=== PATIENT | male | born 1960 | race Caucasian/White ===

== ENCOUNTER 2024-02-18 11:33 | Day surgery (SDC) | payer OTHER, SELFPAY ==
[2024-02-18] VITALS (21 sets, daily range): BP systolic 133–153; BP diastolic 77–95; PULSE 67–90; RESP 14–18; TEMP 36.2–38.1; O2SAT 95–98; BMI 27.9
--- NOTE | 2024-02-18 11:53 | ED.ABDPAIN ---
HPI - Abdominal Pain General Time Seen by Provider: 11:53 Date Seen: 02/18/24 Chief Complaint: Abdominal Pain Stated Complaint: Abdominal pain, vomiting Time Seen by Provider: 02/18/24 11:50 Source: patient and RN notes reviewed Mode of arrival: ambulatory Limitations: no limitations History of Present Illness HPI narrative: This 63-year-old male is coming into the ER of his own accord with abdominal pain. He started with abdominal pain intermittently late last week, worsened over the weekend. It is worsening with eating. He notes no fevers or chills. He has started vomiting once this morning. He does still feel nauseated. He feels bloated. He took 3 Dulcolax tablets with 2 glasses of water today feeling like he needs to have a bowel movement, this was at 7am. His last bowel movement was over 24 hours ago. He is not passing flatus. He has had robotic prostatectomy for reported prostate cancer. He has had an inguinal hernia repair remotely. He had a PFO surgery, states they went through his right groin for that. No urinary changes. MD elicited complaint: abdominal pain Related Data Home Medications Medication Instructions Recorded Confirmed atorvastatin 10 mg tablet 10 mg PO DAILY 02/18/24 02/18/24 losartan 25 mg tablet 25 mg PO DAILY 02/18/24 02/18/24 Allergies Allergy/AdvReac Type Severity Reaction Status Date / Time No Known Drug Allergies Allergy Verified 02/18/24 11:52 Review of Systems Status of ROS Reports: 6 or more systems reviewed and unremarkable except as noted in History and below Exam Const: Vital Signs, click to edit/add: Vital Signs - 24 hr 02/18/24 11:47 02/18/24 12:32 02/18/24 13:29 Temperature 97.2 F L Pulse Rate [Right Pulse Oximeter] 71 70 Respiratory Rate 18 16 Blood Pressure [Ri ght Upper Arm] 145/85 H 142/87 H Pulse Oximetry 97 96 Oxygen Delivery Me thod Room Air Patient is alert, interactive, no apparent distress. Sclera clear, conjugate gaze. Skin is rick no rash noted. Lungs are clear, good air entry, no wheezing or crackles. CV regular rate and rhythm no murmur. Abdomen is soft, maybe mildly distended, do not hear bowel sounds. He is having some mild right lower quadrant tenderness, maybe generalizes. No rebound or guarding at this time. Do not feel any masses. Of note, patient did state that when I had him take deep breaths he was feeling it in the right lower quadrant of his abdomen. Further questioning does elucidate that walking and ambulation have been increasing the pain in his right lower quadrant as well. Documenting provider has reviewed patient's vital signs: yes Course Course ED Course: Patient need CT imaging with IV contrast, this certainly could be an intra-abdominal surgical process such as appendicitis. Diverticulitis of the right side of the colon is a possibility. It is possible that he has bowel obstruction, has had prior abdominal surgery. Will get full complement of labs. Will initiate IV fluids, start IV pain management with Toradol, nausea control with Zofran. Reevaluation(s) Time of Reevaluation #1: 13:43 Reevaluation #1: Reviewed with patient that he has appendicitis. Have left a message with the general surgeon. He states his pain is currently controlled. Consultations Consultation #1: Did speak with our general surgeon Dr. Begum. She is asking at the hospitalist potentially admit this patient. Have ordered an EKG, will order IV antibiotics as he will not likely go to the OR immediately. There are other cases ahead of him, other add on surgical cases. Time: 13:47 Consultation #2: Spoke with hospitalist Dr. Thomas. He accepts care of this patient. Time: 14:05 Vital Signs Vital signs: Initial Vital Signs Temperature 97.2 F L 02/18/24 11:47 Temperature Source Temporal Artery Scan 02/18/24 11:47 Pulse Rate 71 02/18/24 11:47 Respiratory Rate 18 02/18/24 11:47 Blood Pressure 145/85 H 02/18/24 11:47 Blood Pressure Mean 105 02/18/24 11:47 Blood Pressure Position Sitting 02/18/24 11:47 Pulse Oximetry 97 02/18/24 11:47 Oxygen Delivery Method Room Air 02/18/24 11:47 Vital Signs Temperature 97.2 F L 02/18/24 11:47 Pulse Rate 71 02/18/24 11:47 Respiratory Rate 18 02/18/24 11:47 Blood Pressure 145/85 H 02/18/24 11:47 Pulse Oximetry 97 02/18/24 11:47 Oxygen Delivery Method Room Air 02/18/24 11:47 Temperature 97.2 F L 02/18/24 11:47 Pulse Rate 70 02/18/24 13:29 Respiratory Rate 16 02/18/24 13:29 Blood Pressure 142/87 H 02/18/24 13:29 Pulse Oximetry 96 02/18/24 12:32 Oxygen Delivery Method Room Air 02/18/24 11:47 Medications Administered Medications: Discontinued Medications Generic Name Dose Route Start Last Admin Trade Name Freq PRN Reason Stop Dose Admin Sodium Chloride 1,000 mls @ 500 mls/hr 02/18/24 12:02 02/18/24 12:27 0.9 % Sodium Chloride 1000 Ml IV 02/18/24 14:01 500 mls/hr .Q2H VICK Administration Piperacillin Sod/Tazobactam 100 mls @ 200 mls/hr 02/18/24 13:47 02/18/24 14:03 Sod 3.375 gm/ Sodium Chloride IVPB 02/18/24 13:48 200 mls/hr ONCE ONE Administration Ketorolac Tromethamine 15 mg 02/18/24 12:01 02/18/24 12:27 Ketorolac 15 Mg/Ml Inj IVP 02/18/24 12:02 15 mg ONCE ONE Administration Ondansetron HCl 4 mg 02/18/24 12:01 02/18/24 12:28 Ondansetron 2 Mg/Ml Inj IVP 02/18/24 12:02 4 mg ONCE ONE Administration MDM - Abdominal Pain Lab Data Attestation: I reviewed the patient's lab results. Labs: Lab Results 02/18/24 Range/Units 12:15 WBC 17.17 H (4.50-11.00) K/uL RBC 5.32 (4.30-5.90) m/uL Hgb 16.1 (13.5-17.5) gm/dL Hct 48.3 (37.0-53.0) % MCV 91 (80-100) fL MCH 30 (26-34) pg MCHC 33 (32-36) gm/dL RDW Coeff of Cara 12.5 (11.5-15.5) % Plt Count 296 (140-440) K/uL Neut % (Auto) 92.0 H (42.0-72.0) % Lymph % (Auto) 2.3 L (20-44) % [place] % (Auto) 5.3 (0.0-11.0) % Eos % (Auto) 0.1 (0.0-7.0) % Baso % (Auto) 0.1 (0.0-3.0) % Neut # (Auto) 15.80 H (1.7-7.0) K/uL Lymph # (Auto) 0.40 L (0.90-2.90) K/uL [place] # (Auto) 0.90 (0.00-0.90) K/UL Eos # (Auto) 0.00 (0.00-0.50) K/uL Baso # (Auto) 0.00 (0.00-0.30) K/uL Abs Immat Gran (auto) 0.00 (0.00-0.30) K/uL Imm/Tot Granulo (auto) 0.2 % Sodium 136 (135-149) mmol/L Potassium 4.4 (3.6-5.1) mmol/L Chloride 104 (96-114) mmol/L Carbon Dioxide 25 (20-32) mmol/L Anion Gap 7 (7-15) mEq/L BUN 20 (7-30) mg/dL Creatinine 0.8 (0.5-1.5) mg/dL Estimated Creat Clear 79.48 Estimated GFR 99 ml/min Glucose 115 (60-115) mg/dL Lactate 1.3 (0.5-1.9) mmol/L Calcium 9.8 (8.4-10.6) mg/dL Total Bilirubin 0.9 (0.1-1.5) mg/dL AST 29 (12-35) U/L ALT 31 (4-50) U/L Alkaline Phosphatase 87 (40-150) U/L C-Reactive Protein 3.5 H (0.5-1.0) mg/dL Total Protein 8.4 H (6.0-8.3) g/dL Albumin 4.8 (3.3-5.0) g/dL Imaging Data CT scan - abdomen: Attestation: I have reviewed the pertinent imaging results. Radiologist's impression: Patient: VIK PEREYRA Facility:?[facility] Patient ID:?[id number] Site Patient ID:?[id number]. Site :?[id number] Study:?CT Abdomen/Pelvis 98CC ISOVUE 370-02/18/2024 1:04:28 PM Ordering Physician:?DR. NIÑO Final Report: INDICATION: Right-sided abdominal pain associated with nausea and vomiting. COMPARISON: 09/16/2018 TECHNIQUE: CT of the abdomen and pelvis with 98 cc of Isovue 370 intravenous contrast. Please note that all CT scans at this facility use dose modulation, iterative reconstruction, and/or weight-based dosing when appropriate to reduce radiation dose to as low as reasonably achievable. FINDINGS: ABDOMEN Liver: Normal hepatic attenuation. No suspicious focal hepatic lesion. No intrahepatic biliary ductal dilatation. Patent portal and hepatic veins. Gallbladder: Normal gallbladder size. Normal common duct caliber. No pericholecystic inflammatory changes. Pancreas: Normal pancreatic attenuation. No focal lesion. Normal duct caliber. No peripancreatic inflammatory changes. Spleen: Normal splenic attenuation. No suspicious focal lesion. Patent splenic artery and vein. Incidental benign calcified splenic granulomas. Adrenal Glands: Symmetrical adrenal glands. No focal lesion of significance. Kidneys: Normal bilateral renal attenuation. No suspicious focal lesion. No obstructing nephrolith or dilatation of the intrarenal collecting systems. Patent renal arteries and veins. Nondilated upper urinary tracts. Gastrointestinal tract: Dilated hyperenhancing appendix within which multiple appendicoliths are identified (series 2; images 93, 97). Surrounding periappendiceal fat stranding. Vascular: Abdominal aorta and its major proximal branches including the celiac, superior mesenteric, inferior mesenteric, renal, and bilateral common iliac arteries are patent. Inferior vena cava, portal and superior mesenteric veins are patent. Additional findings: No incidental adenopathy. No significant ascites, free fluid or pneumoperitoneum. PELVIS No bladder lesion is identified. Prostatectomy. No abnormal free fluid. No incidental adenopathy. SKELETON AND BODY WALL Degenerative grade 1 anterolisthesis of L4 on L5. Asymmetrical left hip osteoarthrosis. Left S1 perineural cyst. Penile implant. LOWER THORAX PFO closure device. Bilateral lower lobe dependent hypoventilatory changes. The included lower thoracic wall, lungs, pleural spaces and mediastinum are otherwise without significant incidental findings. IMPRESSION: 1. Acute uncomplicated appendicitis. Surgical consultation is recommended. 2. Incidental findings described above. Please note that all CT scans at this facility use dose modulation, iterative reconstruction, and/or weight-based dosing when appropriate to reduce radiation dose to as low as reasonably achievable. Dictated by Willie Love MD @ 02/18/2024 1:25:19 PM (Electronic Signature) ----- ADDENDUM ----- ADDENDUM: Incidental note is made of a small left paramedian supraumbilical fat containing hernia (series 2; image 79) and a Welsh hernia involving the ascending colon along the medial border of the oblique and transversus abdominus musculature (series 2; image 82). These findings and findings of acute appendicitis were discussed directly with Dr. NIÑO at 1:30 p.m. 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 Dictated by Willie Love MD @ Feb 18 2024 1:28PM (Electronic Signature) ECG Data Attestation: I personally reviewed and interpreted this ECG as follows: (Normal sinus rhythm, 77 beats per minute. No acute pathology. Flipped T-wave in lead [address] segment changes. QT corrected 450 milliseconds.) ECG interpretation date: 02/18/24 ECG interpretation time: 13:57 Prior ECG tracings: not available for review Discharge Plan Discharge Clinical Impression: Acute appendicitis Qualifiers: Acute appendicitis type: unspecified acute appendicitis type Qualified Code(s): K35.80 - Unspecified acute appendicitis Patient Disposition: Admitted As Observation
--- NOTE | 2024-02-18 12:02 | CT_ITS ---
Patient: VIK PEREYRA Facility:?[facility] Patient ID:?[id number] Site Patient ID:?[id number]. Site :?1960 Study:?CT-Abdomen/Pelvis 98CC ISOVUE 370-02/18/2024 1:04:28 PM Ordering Physician:?DR. NIÑO Final Report: INDICATION: Right-sided abdominal pain associated with nausea and vomiting. COMPARISON: 09/16/2018 TECHNIQUE: CT of the abdomen and pelvis with 98 cc of Isovue 370 intravenous contrast. Please note that all CT scans at this facility use dose modulation, iterative reconstruction, and/or weight-based dosing when appropriate to reduce radiation dose to as low as reasonably achievable. FINDINGS: ABDOMEN Liver: Normal hepatic attenuation. No suspicious focal hepatic lesion. No intrahepatic biliary ductal dilatation. Patent portal and hepatic veins. Gallbladder: Normal gallbladder size. Normal common duct caliber. No pericholecystic inflammatory changes. Pancreas: Normal pancreatic attenuation. No focal lesion. Normal duct caliber. No peripancreatic inflammatory changes. Spleen: Normal splenic attenuation. No suspicious focal lesion. Patent splenic artery and vein. Incidental benign calcified splenic granulomas. Adrenal Glands: Symmetrical adrenal glands. No focal lesion of significance. Kidneys: Normal bilateral renal attenuation. No suspicious focal lesion. No obstructing nephrolith or dilatation of the intrarenal collecting systems. Patent renal arteries and veins. Nondilated upper urinary tracts. Gastrointestinal tract: Dilated hyperenhancing appendix within which multiple appendicoliths are identified (series 2; images 93, 97). Surrounding periappendiceal fat stranding. Vascular: Abdominal aorta and its major proximal branches including the celiac, superior mesenteric, inferior mesenteric, renal, and bilateral common iliac arteries are patent. Inferior vena cava, portal and superior mesenteric veins are patent. Additional findings: No incidental adenopathy. No significant ascites, free fluid or pneumoperitoneum. PELVIS No bladder lesion is identified. Prostatectomy. No abnormal free fluid. No incidental adenopathy. SKELETON AND BODY WALL Degenerative grade 1 anterolisthesis of L4 on L5. Asymmetrical left hip osteoarthrosis. Left S1 perineural cyst. Penile implant. LOWER THORAX PFO closure device. Bilateral lower lobe dependent hypoventilatory changes. The included lower thoracic wall, lungs, pleural spaces and mediastinum are otherwise without significant incidental findings. IMPRESSION: 1. Acute uncomplicated appendicitis. Surgical consultation is recommended. 2. Incidental findings described above. Please note that all CT scans at this facility use dose modulation, iterative reconstruction, and/or weight-based dosing when appropriate to reduce radiation dose to as low as reasonably achievable. Dictated by Willie Love MD @ 02/18/2024 1:25:19 PM ----- ADDENDUM ----- ADDENDUM: Incidental note is made of a small left paramedian supraumbilical fat containing hernia (series 2; image 79) and a Welsh hernia involving the ascending colon along the medial border of the oblique and transversus abdominus musculature (series 2; image 82). These findings and findings of acute appendicitis were discussed directly with Dr. NIÑO at 1:30 p.m. 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 Dictated by Willie Love MD @ Feb 18 2024 1:28PM Signed by:?Willie Love MD @02/18/2024 1:25:19 PM (Electronic Signature)
[2024-02-18] MEDS: KETOROLAC 15 MG/ML inj IVP (12:27)
[2024-02-18] MEDS: 0.9 % SODIUM CHLORIDE 1000 ml 1,000 ML 500 ML IV (12:27)
[2024-02-18] MEDS: ONDANSETRON 2 MG/ML inj 4 MG IVP (12:28)
[2024-02-18 12:31] LABS: Lactate* 1.3 mmol/L (0.5-1.9)
[2024-02-18 12:33] LABS: Basophils Percent Auto 0.1 % (0.0-3.0); Eosinophils Percent Auto 0.1 % (0.0-7.0); Hematocrit 48.3 % (37.0-53.0); Hemoglobin* 16.1 gm/dL (13.5-17.5); Immature Granulocytes Pct Auto 0.2 %; Lymphocytes Percent Auto 2.3 % (20-44); Mean Corpuscular HGB Conc 33 gm/dL (32-36); Mean Corpuscular Hemoglobin 30 pg (26-34); Mean Corpuscular Volume 91 fL (80-100); Monocytes Percent Auto 5.3 % (0.0-11.0); Platelet Count* 296 K/uL (140-440); RDW Coefficient of Variation % 12.5 % (11.5-15.5); Red Blood Count 5.32 m/uL (4.30-5.90); White Blood Count* 17.17 K/uL (4.50-11.00)
[2024-02-18 12:35] LABS: Slide Review Reflex No
[2024-02-18 12:48] LABS: Chloride* 104 mmol/L (96-114)
[2024-02-18 12:49] LABS: Albumin* 4.8 g/dL (3.3-5.0); Potassium* 4.4 mmol/L (3.6-5.1); Sodium* 136 mmol/L (135-149)
[2024-02-18 12:51] LABS: Creatinine* 0.8 mg/dL (0.5-1.5); Est. Creatinine Clearance* 79.48; Estimated Glomerular Filt Rate 99 ml/min
[2024-02-18 12:52] LABS: Alanine Aminotransferase* 31 U/L (4-50); Alkaline Phosphatase* 87 U/L (40-150); Anion Gap 7 mEq/L (7-15); Aspartate Amino Transferase* 29 U/L (12-35); Bilirubin Total* 0.9 mg/dL (0.1-1.5); Blood Urea Nitrogen* 20 mg/dL (7-30); Calcium* 9.8 mg/dL (8.4-10.6); Carbon Dioxide* 25 mmol/L (20-32); Glucose* 115 mg/dL (60-115); Total Protein* 8.4 g/dL (6.0-8.3)
[2024-02-18 12:55] LABS: C Reactive Protein* 3.5 mg/dL (0.5-1.0)
--- NOTE | 2024-02-18 14:02 | P.GSCN_ITS ---
History of Present Illness Consult details Date Seen: 02/18/24 Consult date: 02/18/24 Narrative: The patient is a 63-year-old male who presented to the emergency department today with right-sided pain. He states that this started on Saturday. 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 On Saturday he felt better but then yesterday he ate and his symptoms became much worse. Since then his symptoms have been worse with eating. He states that the discomfort started in the middle of his abdomen but then moved to the right side. He has not had any fevers. This morning he forced himself to vomit because he felt so much abdominal pressure, however since then he has felt better. Workup in the emergency department showed acute appendicitis. [facility] Medical History (Updated 02/18/24 @ 15:53 by Nam Thomas MD) Adenomatous polyp of colon ?D12.6 - Benign neoplasm of colon, unspecified (ICD-10) Hypertensive kidney disease with chronic kidney disease stage II ?I12.9 - Hypertensive chronic kidney disease with stage 1 through stage 4 chronic kidney disease, or unspecified chronic kidney disease (ICD-10) ?N18.2 - Chronic kidney disease, stage 2 (mild) (ICD-10) History of TIA (transient ischemic attack) ?Z86.73 - Personal history of transient ischemic attack (TIA), and cerebral infarction without residual deficits (ICD-10) Nonruptured wisdom aneurysm ?I67.1 - Cerebral aneurysm, nonruptured (ICD-10) Hypertension ?I10 - Essential (primary) hypertension (ICD-10) Hyperlipemia ?E78.5 - Hyperlipidemia, unspecified (ICD-10) Surgical History (Updated 02/18/24 @ 15:53 by Nam Thomas MD) History of penile implant ?Z96.0 - Presence of urogenital implants (ICD-10) Hx of hernia repair ?Z98.890 - Other specified postprocedural states (ICD-10) ?Z87.19 - Personal history of other diseases of the digestive system (ICD-10) H/O prostatectomy ?Z90.79 - Acquired absence of other genital organ(s) (ICD-10) S/P patent foramen ovale closure ?Z87.74 - Personal history of (corrected) congenital malformations of heart and circulatory system (ICD-10) Family History (Updated 02/18/24 @ 15:33 by Nam Thomas MD) Father Diabetes Stroke Prostate cancer Mother Diabetes Colon cancer Social History What is your current living situation?: I presently have a place to live Problems where you live: no known problems Problems where you live details: none In the past 12 months, utilities in danger of being shut off: no In past 12 months, lack of transportation kept you from medical appts, meetings, work, or getting things needed for daily living: no In the past 12 mos, have been you worried that your food would run out before you had money to buy more?: never true In the past 12 mos, the food you bought just didn't last and you didn't have money to buy more?: never true Highest level of school completed/degree received: Associate degree: occupational, technical, vocational program Smoking Status: Never smoker How often do you have a drink containing alcohol: 2-4 times a month Alcohol type: beer AUDIT-C Alcohol total score: 2 Non-prescribed substance use: denies use Caffeine: Yes How often does anyone, including family, friends and others, physically hurt you : never How often does anyone, including family, friends and others, insult or talk down to you: never How often does anyone, including family, friends and others, threaten you with harm: never How often does anyone, including family, friends and others, scream or curse at you: never service: No Meds Home Medications and Allergies Home Medications Medication Instructions Recorded Confirmed Type atorvastatin 10 mg tablet 10 mg PO DAILY 02/18/24 02/18/24 History losartan 25 mg tablet 25 mg PO DAILY 02/18/24 02/18/24 History Allergies Allergy/AdvReac Type Severity Reaction Status Date / Time No Known Drug Allergies Allergy Verified 02/18/24 14:16 Exam Narrative: Exam Narrative: General appearance: Alert, cooperative, and in no distress Eyes: PERRLA, eye lids clear, and sclera white HENT Head: Normocephalic Ears: External ears normal Pulmonary: Breathing nonlabored on room air Cardiovascular Heart: Regular rate Extremities: warm and well perfused Gastrointestinal Abdominal: Scars consistent with surgical history. He is tender in the right lower quadrant with guarding and rebound. Musculoskeletal: Extremities: Upper: Both upper extremities have normal joint range of motion and intact strength. Lower: Both lower extremities have normal joint range of motion and intact strength. Skin: Normal skin color, texture, and turgor. Neurologic: No focal deficits Psychiatric: Alert, oriented, cooperative, normal affect. Const: Vital Signs, click to edit/add: Vital Signs - 24 hr 02/18/24 11:47 02/18/24 12:32 02/18/24 13:29 Temperature 97.2 F L Pulse Rate [Right Pulse Oximeter] 71 70 Respiratory Rate 18 16 Blood Pressure [Ri ght Upper Arm] 145/85 H 142/87 H Pulse Oximetry 97 96 Oxygen Delivery Me thod Room Air Results Labs Labs: Abnormal lab results 02/18/24 Range/Units 12:15 WBC 17.17 H (4.50-11.00) K/uL Neut % (Auto) 92.0 H (42.0-72.0) % Lymph % (Auto) 2.3 L (20-44) % Neut # (Auto) 15.80 H (1.7-7.0) K/uL Lymph # (Auto) 0.40 L (0.90-2.90) K/uL C-Reactive Protein 3.5 H (0.5-1.0) mg/dL Total Protein 8.4 H (6.0-8.3) g/dL Diabetes panel 02/18/24 Range/Units 12:15 Sodium 136 (135-149) mmol/L Potassium 4.4 (3.6-5.1) mmol/L Chloride 104 (96-114) mmol/L Carbon Dioxide 25 (20-32) mmol/L BUN 20 (7-30) mg/dL Creatinine 0.8 (0.5-1.5) mg/dL Glucose 115 (60-115) mg/dL Calcium 9.8 (8.4-10.6) mg/dL AST 29 (12-35) U/L ALT 31 (4-50) U/L Alkaline Phosphatase 87 (40-150) U/L Total Protein 8.4 H (6.0-8.3) g/dL Albumin 4.8 (3.3-5.0) g/dL Calcium panel 02/18/24 Range/Units 12:15 Calcium 9.8 (8.4-10.6) mg/dL Albumin 4.8 (3.3-5.0) g/dL Pituitary panel 02/18/24 Range/Units 12:15 Sodium 136 (135-149) mmol/L Potassium 4.4 (3.6-5.1) mmol/L Chloride 104 (96-114) mmol/L Carbon Dioxide 25 (20-32) mmol/L BUN 20 (7-30) mg/dL Creatinine 0.8 (0.5-1.5) mg/dL Glucose 115 (60-115) mg/dL Calcium 9.8 (8.4-10.6) mg/dL Adrenal panel 02/18/24 Range/Units 12:15 Sodium 136 (135-149) mmol/L Potassium 4.4 (3.6-5.1) mmol/L Chloride 104 (96-114) mmol/L Carbon Dioxide 25 (20-32) mmol/L BUN 20 (7-30) mg/dL Creatinine 0.8 (0.5-1.5) mg/dL Glucose 115 (60-115) mg/dL Calcium 9.8 (8.4-10.6) mg/dL Total Bilirubin 0.9 (0.1-1.5) mg/dL AST 29 (12-35) U/L ALT 31 (4-50) U/L Alkaline Phosphatase 87 (40-150) U/L Total Protein 8.4 H (6.0-8.3) g/dL Albumin 4.8 (3.3-5.0) g/dL All other labs normal. Imaging Abdomen CT scan report/results: report reviewed and image reviewed Additional studies: Patient: VIK PEREYRA Facility: [facility] Site . Site : 1960 Study: CT-Abdomen/Pelvis 98CC ISOVUE 370-02/18/2024 1:04:28 PM Ordering Physician: DR. NIÑO Final Report: INDICATION: Right-sided abdominal pain associated with nausea and vomiting. COMPARISON: 09/16/2018 TECHNIQUE: CT of the abdomen and pelvis with 98 cc of Isovue 370 intravenous contrast. Please note that all CT scans at this facility use dose modulation, iterative reconstruction, and/or weight-based dosing when appropriate to reduce radiation dose to as low as reasonably achievable. FINDINGS: ABDOMEN Liver: Normal hepatic attenuation. No suspicious focal hepatic lesion. No intrahepatic biliary ductal dilatation. Patent portal and hepatic veins. Gallbladder: Normal gallbladder size. Normal common duct caliber. No pericholecystic inflammatory changes. Pancreas: Normal pancreatic attenuation. No focal lesion. Normal duct caliber. No peripancreatic inflammatory changes. Spleen: Normal splenic attenuation. No suspicious focal lesion. Patent splenic artery and vein. Incidental benign calcified splenic granulomas. Adrenal Glands: Symmetrical adrenal glands. No focal lesion of significance. Kidneys: Normal bilateral renal attenuation. No suspicious focal lesion. No obstructing nephrolith or dilatation of the intrarenal collecting systems. Patent renal arteries and veins. Nondilated upper urinary tracts. Gastrointestinal tract: Dilated hyperenhancing appendix within which multiple appendicoliths are identified (series 2; images 93, 97). Surrounding periappendiceal fat stranding. Vascular: Abdominal aorta and its major proximal branches including the celiac, superior mesenteric, inferior mesenteric, renal, and bilateral common iliac arteries are patent. Inferior vena cava, portal and superior mesenteric veins are patent. Additional findings: No incidental adenopathy. No significant ascites, free fluid or pneumoperitoneum. PELVIS No bladder lesion is identified. Prostatectomy. No abnormal free fluid. No incidental adenopathy. SKELETON AND BODY WALL Degenerative grade 1 anterolisthesis of L4 on L5. Asymmetrical left hip osteoarthrosis. Left S1 perineural cyst. Penile implant. LOWER THORAX PFO closure device. Bilateral lower lobe dependent hypoventilatory changes. The included lower thoracic wall, lungs, pleural spaces and mediastinum are otherwise without significant incidental findings. IMPRESSION: 1. Acute uncomplicated appendicitis. Surgical consultation is recommended. 2. Incidental findings described above. Please note that all CT scans at this facility use dose modulation, iterative reconstruction, and/or weight-based dosing when appropriate to reduce radiation dose to as low as reasonably achievable. Dictated by Willie Love MD @ 02/18/2024 1:25:19 PM ----- ADDENDUM ----- ADDENDUM: Incidental note is made of a small left paramedian supraumbilical fat containing hernia (series 2; image 79) and a Welsh hernia involving the ascending colon along the medial border of the oblique and transversus abdominus musculature (series 2; image 82). Progress Note:A&P Assessment and plan (1) Acute appendicitis: Status: Acute Assessment and Plan: The patient is a 63-year-old male with acute appendicitis. We discussed that appendectomy is the preferred treatment for this. This can most often be done laparoscopically. We discussed risks and benefits of the procedure including but not limited to bleeding, need for conversion to open, risk of injury to other structures, need for possible bowel resection, and abscess formation. The patient understands that the risk of abscess is higher if the appendix is perforated. For that reason, we generally keep patient is in the hospital on IV antibiotics until vital signs and white blood cell count had normalized. We also discussed recovery including 2 weeks of lifting restrictions. He also on CT scan was noted to have an incidental hernia in the right abdomen containing the colon. Will evaluate this intraoperatively. May be able to jerrica se the defect primarily if it is visible and there is involved colon. He is agreeable to proceed and will plan on surgery this evening.
[2024-02-18] MEDS: PIPERACILLIN/TAZOBACTAM 3.375 GM in 0.9 % SODIUM CHLORIDE Mini-bag 100 ML IVPB ×2 (14:03→21:35)
--- NOTE | 2024-02-18 15:33 | P.IMHP_ITS ---
Hospitalist- H&P: HPI History of Present Illness Date Seen: 02/18/24 Chief complaint: Abdominal pain, vomiting Narrative: Sukh Patel is a 63 year old man who presents to our emergency department today after about 24 hours of abdominal pain that eventually localized to the right lower quadrant. Initially was more generalized. In hindsight he may have had the onset of these intermittent abdominal pains late last week. Denies fevers, rigors, diaphoresis. Did have nausea and vomiting this morning. [place] bloated. Took 3 Dulcolax tabs with 2 glasses of water around 7:00 a.m. this morning but that this did not help. Last bowel movement was yesterday morning. Since arriving here he has been given antiemetics and analgesics and his discomfort is better managed at this time. No more nausea or vomiting. Less abdominal pain. Was up much of the night. Is quite tired. CT scan of abdomen and pelvis while in the emergency department demonstrates acute appendicitis. Our general surgeon was consulted and would like to bring the patient to the OR later this evening if possible. Patient is NPO. On IV fluids. On p.r.n. analgesics and antiemetics. Received a single dose of piperacillin tazobactam 3.375 g IV. Review of Systems Status of ROS: Reports: 10 or more systems reviewed and unremarkable except as noted in History and below Narrative: Last took all his medicines yesterday. Designates his as power of employment law attorney for health should that be required, Tania, . Requests full resuscitation in the event of cardiopulmonary demise. No recent fevers, rigors, diaphoresis. No recent travel, trauma. Was planning on traveling to [place] with his to me their daughter tomorrow evening. 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 [facility] Medical History (Updated 02/18/24 @ 15:53 by Nam Thomas MD) Adenomatous polyp of colon ?D12.6 - Benign neoplasm of colon, unspecified (ICD-10) Hypertensive kidney disease with chronic kidney disease stage II ?I12.9 - Hypertensive chronic kidney disease with stage 1 through stage 4 chronic kidney disease, or unspecified chronic kidney disease (ICD-10) ?N18.2 - Chronic kidney disease, stage 2 (mild) (ICD-10) History of TIA (transient ischemic attack) ?Z86.73 - Personal history of transient ischemic attack (TIA), and cerebral infarction without residual deficits (ICD-10) Nonruptured wisdom aneurysm ?I67.1 - Cerebral aneurysm, nonruptured (ICD-10) Hypertension ?I10 - Essential (primary) hypertension (ICD-10) Hyperlipemia ?E78.5 - Hyperlipidemia, unspecified (ICD-10) Surgical History (Updated 02/18/24 @ 15:53 by Nam Thomas MD) History of penile implant ?Z96.0 - Presence of urogenital implants (ICD-10) Hx of hernia repair ?Z98.890 - Other specified postprocedural states (ICD-10) ?Z87.19 - Personal history of other diseases of the digestive system (ICD-10) H/O prostatectomy ?Z90.79 - Acquired absence of other genital organ(s) (ICD-10) S/P patent foramen ovale closure ?Z87.74 - Personal history of (corrected) congenital malformations of heart and circulatory system (ICD-10) Family History (Updated 02/18/24 @ 15:33 by Nam Thomas MD) Father Diabetes Stroke Prostate cancer Mother Diabetes Colon cancer Social History What is your current living situation?: I presently have a place to live Problems where you live: no known problems Problems where you live details: none In the past 12 months, utilities in danger of being shut off: no In past 12 months, lack of transportation kept you from medical appts, meetings, work, or getting things needed for daily living: no In the past 12 mos, have been you worried that your food would run out before you had money to buy more?: never true In the past 12 mos, the food you bought just didn't last and you didn't have money to buy more?: never true Highest level of school completed/degree received: Associate degree: occupational, technical, vocational program Smoking Status: Never smoker How often do you have a drink containing alcohol: 2-4 times a month Alcohol type: beer AUDIT-C Alcohol total score: 2 Non-prescribed substance use: denies use Caffeine: Yes How often does anyone, including family, friends and others, physically hurt you : never How often does anyone, including family, friends and others, insult or talk down to you: never How often does anyone, including family, friends and others, threaten you with harm: never How often does anyone, including family, friends and others, scream or curse at you: never service: No Meds Home Medications and Allergies Home Medications Medication Instructions Recorded Confirmed Type atorvastatin 10 mg tablet 10 mg PO DAILY 02/18/24 02/18/24 History losartan 25 mg tablet 25 mg PO DAILY 02/18/24 02/18/24 History Allergies Allergy/AdvReac Type Severity Reaction Status Date / Time No Known Drug Allergies Allergy Verified 02/18/24 14:16 Exam Narrative: Exam Narrative: I examine him in his hospital room. Appears comfortable and in no acute distress. Vision and hearing are grossly normal. Alert, oriented to self, place, time, situation. Articulate, cooperative, friendly. No icterus. No jaundice. Conjugate gaze. Midline nasal septum. Dentition in good repair. Moist buccal mucosa. Neck is full. Midline trachea. No head neck lymphadenopathy. Lungs are clear to auscultation. No wheezing, rhonchi, or rales. No CVA tenderness. Heart tones with regular rhythm, normal S1-S2, without murmur, gallop, rub. PMI not laterally displaced. Abdomen with active bowel sounds. Soft. Subjective discomfort to palpation right lower quadrant. No rebound. No focal motor neurologic deficits. No edema. Capillary refill less than 3 seconds. Const: Vital Signs, click to edit/add: Vital Signs - 24 hr 02/18/24 11:47 02/18/24 12:32 02/18/24 13:29 Temperature 97.2 F L Pulse Rate [Pulse Oximeter] Pulse Rate [Right Pulse Oximeter] 71 70 Respiratory Rate 18 16 Blood Pressure [Ri ght Arm] Blood Pressure [Ri ght Upper Arm] 145/85 H 142/87 H Pulse Oximetry 97 96 Oxygen Delivery Me thod Room Air 02/18/24 14:46 02/18/24 15:10 Temperature 98.2 F Pulse Rate [Pulse Oximeter] 67 67 Pulse Rate [Right Pulse Oximeter] Respiratory Rate 18 18 Blood Pressure [Ri ght Arm] 149/95 H Blood Pressure [Ri ght Upper Arm] Pulse Oximetry 98 Oxygen Delivery Ga thod Room Air Hospitalist - H&P: Result Labs Labs: Short CBC 02/18/24 Range/Units 12:15 WBC 17.17 H (4.50-11.00) K/uL Hgb 16.1 (13.5-17.5) gm/dL Hct 48.3 (37.0-53.0) % Plt Count 296 (140-440) K/uL BMP 02/18/24 12:15 Sodium 136 Potassium 4.4 Chloride 104 Carbon Dioxide 25 BUN 20 Creatinine 0.8 Glucose 115 Calcium 9.8 Liver Function 02/18/24 Range/Units 12:15 Total Bilirubin 0.9 (0.1-1.5) mg/dL AST 29 (12-35) U/L ALT 31 (4-50) U/L Alkaline Phosphatase 87 (40-150) U/L Albumin 4.8 (3.3-5.0) g/dL ECG Attestation: I personally reviewed and interpreted this ECG as follows: ECG interpretation date: 02/18/24 Pacemaker model: Normal sinus rhythm. No ischemic changes. Imaging CT scan- abdomen and pelvis: Attestation: I have reviewed the pertinent imaging results. Radiologist's impression: FINDINGS: ABDOMEN Liver: Normal hepatic attenuation. No suspicious focal hepatic lesion. No intrahepatic biliary ductal dilatation. Patent portal and hepatic veins. Gallbladder: Normal gallbladder size. Normal common duct caliber. No pericholecystic inflammatory changes. Pancreas: Normal pancreatic attenuation. No focal lesion. Normal duct caliber. No peripancreatic inflammatory changes. Spleen: Normal splenic attenuation. No suspicious focal lesion. Patent splenic artery and vein. Incidental benign calcified splenic granulomas. Adrenal Glands: Symmetrical adrenal glands. No focal lesion of significance. Kidneys: Normal bilateral renal attenuation. No suspicious focal lesion. No obstructing nephrolith or dilatation of the intrarenal collecting systems. Patent renal arteries and veins. Nondilated upper urinary tracts. Gastrointestinal tract: Dilated hyperenhancing appendix within which multiple appendicoliths are identified (series 2; images 93, 97). Surrounding periappendiceal fat stranding. Vascular: Abdominal aorta and its major proximal branches including the celiac, superior mesenteric, inferior mesenteric, renal, and bilateral common iliac arteries are patent. Inferior vena cava, portal and superior mesenteric veins are patent. Additional findings: No incidental adenopathy. No significant ascites, free fluid or pneumoperitoneum. PELVIS No bladder lesion is identified. Prostatectomy. No abnormal free fluid. No incidental adenopathy. SKELETON AND BODY WALL Degenerative grade 1 anterolisthesis of L4 on L5. Asymmetrical left hip osteoarthrosis. Left S1 perineural cyst. Penile implant. LOWER THORAX PFO closure device. Bilateral lower lobe dependent hypoventilatory changes. The included lower thoracic wall, lungs, pleural spaces and mediastinum are otherwise without significant incidental findings. IMPRESSION: 1. Acute uncomplicated appendicitis. Surgical consultation is recommended. 2. Incidental findings described above. Assessment and Plan Assessment and plan (1) Acute appendicitis: Problem comment: - NPO. IV fluids. As needed analgesics and antiemetics. IV piperacillin and tazobactam. General surgery will be consulting on patient shortly. Admit to same-day surgery. - venous thromboembolism prophylaxis. Status: Acute (2) Hypertension: Problem comment: - hold losartan. Status: Acute (3) S/P patent foramen ovale closure: Problem comment: - 09/10/2018, [facility], [place], [place]. - hold aspirin 81 mg orally once daily while in hospital at this time, with General surgery to determine when to reinitiate. Status: Acute Plan 1. Reviewed impression with patient 2. Answered patient's questions to satisfaction. 3. Patient agreeable with above stated plans and recommendations. Total Time Spent Total Time Spent: 50 minutes
[2024-02-18] MEDS: 0.9 % SODIUM CHLORIDE 1000 ml 1,000 ML 125 ML IV (15:43)
[2024-02-18] MEDS: PIPERACILLIN/TAZOBACTAM 3.375 GM INJ IVPB (17:57)
[2024-02-18] MEDS: LACTATED RINGERS 1000 ML 1,000 ML 125 ML IV ×2 (17:58→21:37)
[2024-02-18] MEDS: BUPIVACAINE 0.25% 30 ML 20 ML INJECTION (18:09)
--- NOTE | 2024-02-18 19:05 | SUR.OPER ---
PER Zeferino GRADY MD, CALLED THE PT. . NO ANSWER, LEFT A BRIEF VOICE MAIL AND A CALL BACK NUMBER @ 19:00.
--- NOTE | 2024-02-18 19:22 | PC.NURSE ---
End of Shift: Patient pleasant and cooperative, arrived to the floor about 1430. Patient vitally stable, lungs clear, BS WNL, IV running NS 124. Patient rates pain 3/10, no pain medication given prior to surgery. Patient urinated x2 and napped up until surgery. Patient left the floor to surgery at 1736.
--- NOTE | 2024-02-18 20:08 | PM.GSPRC ---
Operative Note Date of procedure: 02/18/24 Pre-op diagnosis: 1. Acute appendicitis 2. Right abdominal wall hernia with incarcerated colon Post-op diagnosis: 1. Acute gangrenous appendicitis 2. Right port site hernia with incarcerated small bowel diverticula, Meckel's versus traction Type of Procedure: 1. Laparoscopic appendectomy 2. Repair right abdominal wall incisional hernia 3. Small-bowel diverticulum resection Indications: The patient is a 63-year-old male who presented to the emergency department with several days of abdominal pain. He was found on imaging to have acute appendicitis. Also incidentally noted on his right abdomen he had a Welsh's hernia with a piece of presumed ascending colon. I recommended appendectomy and he agreed to proceed. Procedure Description: After discussing the risks and benefits of the procedure, the patient signed informed consent.? The operative site was marked and the patient was brought to the operating room and placed on the operating table in supine position.? Care was taken to pad the patient's pressure points.?? The patient was then intubated by anesthesia.?? The operative site was then prepped and draped in the usual sterile fashion.? A time-out was then performed. Entrance to the abdomen was attempted via a 5 mm optical trocar in the left upper quadrant. The layers of the abdominal wall were visualized. Once it appeared as though the peritoneal cavity was entered the abdomen was insufflated. The abdomen did appear to insufflate somewhat, however the camera was placed into the port and it appeared as though it was in omental versus preperitoneal fat. I again placed the port, visualizing the muscle layers. It appeared again is though the port was intraperitoneal, however, I was unable to visualize anything other than fatty tissue. I then elected to enter the abdomen via Xiomy technique. An infraumbilical incision was created and dissection was taken down to the fascia. This was incised in the midline. The peritoneum was then entered. A 12 mm port was placed and the abdomen insufflated. I examined the left upper quadrant. There were adhesions from the omentum to this area. I could see the ecchymosis on the peritoneum where the port placement was attempted. I placed an additional 5 mm port in the left lower quadrant. Then using a scissor, I took down the filmy adhesions. It appeared as though the port had not completely enter the peritoneal cavity. There was no blood staining on the underlying omentum or sign of injury. I then placed the 5 mm port in the left upper quadrant. The patient was then placed in Trendelenburg position with the right side up. There was a bowel containing hernia noted in the right mid abdomen. This appeared to be small bowel. This corresponded roughly to a port site from the patient's prior prostatectomy. I attempted to reduce this however it was densely adherent. I then attempted to work around it, however the appendix appeared to be retrocecal in location. I was able to identify the appendix, however I was not able to dissected as the small bowel which was tethered in the hernia prevented visualization. I then decided that the hernia would have to be reduced. Using a Metzenbaum scissors, I carefully incised the peritoneal adhesions. I continued, erring on the side of the peritoneum to avoid bowel injury. The bowel continued on and what appeared to be a very small hernia. I was eventually able to reduce this with a combination of sharp dissection as well as blunt dissection using a [place] to identify the adhesions. Once this was reduced, it appeared to be a diverticulum. Whether this was a Meckel's diverticulum or a traction diverticulum was unclear. I examined the small bowel and it was not narrowed. I was able to apply a stapler transversely across the small bowel to remove the diverticulum without narrowing the small bowel. This was done using a purple load MARTHA stapler. A small bleeding vessel on the staple line was clipped with a 5 mm clip personal finance instructor. The diverticulum was then removed from the abdomen and sent to pathology. I then turned my attention back to identify the appendix. I was able to identify the appendiceal tip. This was very firm and densely adherent to the retroperitoneum. With blunt dissection I was able to pull this into view. It appeared as though the terminal ileum was adherent to the appendiceal base, making it difficult to identify. The appendix was friable and gangrenous appearing. I was able to identify a plane between the terminal ileum and the appendiceal base. I gently teased away the terminal ileum from the appendiceal base without injury to the terminal ileum. Once this was done I was able to identify the appendiceal base. I then created a mesenteric window using Sammi dissector. A purple load Endo-MARTHA stapler was then used to transect the appendix at its base. The staple line was examined. This was intact. The appendiceal artery had been divided and was bleeding. I attempted to control this with a clip personal finance instructor, however because of the inflamed, friable mesenteric fat, it continued to ooze. I elected to divide the remaining mesentery using cautery. I then removed the appendix from the abdomen using a specimen bag. Once this was done I turned my attention back to the appendiceal vessel. Since the clips had partially controlled the bleeding, I attempted to cauterize them, however this did not resulted in complete hemostasis. I suctioned the area to identify the exact area of bleeding and the previously placed clips dislodged. I did have to use irrigation to remove clot for visualization. I attempted to use LigaSure to ligate the appendiceal artery, however the blood vessel again was within the thickened mesenteric fat which made it impossible to grasp for a seal. I placed a 3-0 Vicryl stitch through the mesoappendix and was able to pull the vessel up into view. With this I was able to obtain hemostasis using the LigaSure. The area was no longer bleeding, however, I placed a piece of Surgicel over this and turned my attention to repair of the fascial defect at the hernia site. I elected to do this with a Luke-Kristen device. I made a small incision directly overlying the fascial opening. Using an 0 Vicryl I closed the defect using a Luke-Kristen, resulting in complete closure of the fascia. Once this was done I turned my attention back to the appendiceal base. There was no further bleeding noted at all. There were no clots noted on the Surgicel. The patient was then laid flat and the ports were removed. The abdomen was then desufflated. The 12 mm port site fascia was closed with 0 Vicryl. The skin was then closed with absorbable subcuticular suture. Sterile dressings were then applied. Instrument sponge and needle counts were correct at the end of the case. The patient was then woken and transported to the PACU in stable condition. ? The patient tolerated the procedure well. Findings: 1. Acute gangrenous appendicitis without free intraperitoneal perforation 2. Port site hernia containing traction versus Meckel's diverticulum of the small bowel. Anesthesia: GETA Surgeon: Gerri Begum MD Estimated blood loss (mL): 100 Specimen: Appendix Additional Specimen Information: 1. Appendix 2. Small-bowel diverticulum, Meckel's versus traction Condition: stable Disposition: PACU
--- NOTE | 2024-02-18 20:21 | W.ANESCHARGE ---
Anesthesia Charges Start Date/Time Anesthesia Start Date: 02/18/24 Anesthesia Start Time: 17:40 Stop Date/Time Anesthesia Stop Date: 02/18/24 Anesthesia Stop Time: 20:21
[2024-02-18] MEDS: 0.9 % SODIUM CHLORIDE 250 ml IV (21:42)
[2024-02-19] VITALS (8 sets, daily range): BP systolic 109–136; BP diastolic 65–86; PULSE 66–80; RESP 16–18; TEMP 36.8–38.4; O2SAT 93–98
[2024-02-19] MEDS: HYDROmorphone 0.5 mg/0.5 ml inj IVP (00:15)
[2024-02-19] MEDS: SODIUM CHLORIDE 0.9 % (FLUSH) 10 ML SYRINGE 5 ML IVF (00:17)
[2024-02-19] MEDS: ACETAMINOPHEN 325 MG TABLET 650 MG PO (00:25)
[2024-02-19] MEDS: PIPERACILLIN/TAZOBACTAM 3.375 GM in 0.9 % SODIUM CHLORIDE Mini-bag 100 ML IVPB ×2 (02:51→09:38)
--- NOTE | 2024-02-19 05:30 | PC.NURSE ---
Shift note: Pt was received from OR to the unit at 2054. Conscious, alert and oriented. Dressing appeared clean and dry. Vitally stable except temperature which consistently increased from 99.2 to 101.1. Tylenol given at 0030 and dropped the temperature to 98.4. Pt complained of headache of 6 and minor incisional pain. Deluded given which was effective. Pt had adequate sleep.
[2024-02-19 06:00] LABS: Basophils Percent Auto 0.1 % (0.0-3.0); Eosinophils Percent Auto 0.1 % (0.0-7.0); Hematocrit 40.3 % (37.0-53.0); Hemoglobin* 13.4 gm/dL (13.5-17.5); Immature Granulocytes Pct Auto 0.2 %; Lymphocytes Percent Auto 5.6 % (20-44); Mean Corpuscular HGB Conc 33 gm/dL (32-36); Mean Corpuscular Hemoglobin 31 pg (26-34); Mean Corpuscular Volume 93 fL (80-100); Monocytes Percent Auto 7.7 % (0.0-11.0); Neutrophils Percent Auto 86.3 % (42.0-72.0); Platelet Count* 253 K/uL (140-440); RDW Coefficient of Variation % 12.9 % (11.5-15.5); Red Blood Count 4.33 m/uL (4.30-5.90); White Blood Count* 11.54 K/uL (4.50-11.00)
[2024-02-19 06:02] LABS: Slide Review Reflex No
[2024-02-19] MEDS: LACTATED RINGERS 1000 ML 1,000 ML 125 ML IV (06:47)
[2024-02-19] MEDS: ATORVASTATIN 10 MG TABLET PO (09:37)
[2024-02-19] MEDS: LOSARTAN POTASSIUM 50 MG TABLET 25 MG PO (09:37)
--- NOTE | 2024-02-19 11:59 | P.DS_ITS ---
DS: Providers Provider Date Seen: 02/19/24 Primary care physician: Not a Local Provider Consults: 02/18/24 15:23 Consult to Physician [CONS] Routine Comment: Consulting Provider: Gerri Begum Has provider been notified: Yes Attending Physician on discharge: Gerri Begum MD DS: Summary Hospital Course Hospital Course: The patient is a 63-year-old male who presented to the hospital with several days of abdominal pain. He was found to have appendicitis. I recommended appendectomy and we proceeded to the OR emergently. Incidentally noted on CT scan was a right abdominal wall hernia which appeared to be containing bowel. This was likely from the port site from his prior prostatectomy. Intraoperatively he was noted to have an incarcerated piece of small bowel within this hernia. This precluded visualization of the appendix and therefore the hernia was reduced. The incarcerated small bowel appeared to be a diverticulum, either a Meckel's or traction. This was resected. The appendix was gangrenous, however was not perforated. This was removed. The patient was it ended overnight in the hospital. He did well postoperatively. He was deemed safe for discharge home on postop day 1. Time Spent with Patient Time attestation: Total time spent providing and/or coordinating discharge services: Exam Narrative: Exam Narrative: General appearance: Alert, cooperative, and in no distress Eyes: PERRLA, eye lids clear, and sclera white HENT Head: Normocephalic Ears: External ears normal Pulmonary: Breathing nonlabored on room air Cardiovascular Heart: Regular rate Extremities: warm and well perfused Gastrointestinal Abdominal: Incisions are clean and dry. No soilage on dressings. Musculoskeletal: Extremities: Upper: Both upper extremities have normal joint range of motion and intact strength. Lower: Both lower extremities have normal joint range of motion and intact strength. Skin: Normal skin color, texture, and turgor. Neurologic: No focal deficits Psychiatric: Alert, oriented, cooperative, normal affect. Const: Vital Signs, click to edit/add: Vital Signs - 24 hr 02/18/24 12:32 02/18/24 13:29 02/18/24 14:46 Temperature 98.2 F Pulse Rate Pulse Rate [Pulse Oximeter] 67 Pulse Rate [Right Pulse Oximeter] 70 Respiratory Rate 16 18 Blood Pressure Blood Pressure [Ri ght Arm] 149/95 H Blood Pressure [Ri ght Upper Arm] 142/87 H Pulse Oximetry 96 98 Oxygen Delivery Me thod Room Air 02/18/24 15:10 02/18/24 20:16 02/18/24 20:20 Temperature 98.5 F Pulse Rate 90 89 Pulse Rate [Pulse Oximeter] 67 Pulse Rate [Right Pulse Oximeter] Respiratory Rate 18 16 14 Blood Pressure 153/80 H 147/87 H Blood Pressure [Ri ght Arm] Blood Pressure [Ri ght Upper Arm] Pulse Oximetry 97 98 Oxygen Delivery Me thod Room Air Room Air 02/18/24 20:25 02/18/24 20:30 02/18/24 20:35 Temperature 98.5 F Pulse Rate 84 81 79 Pulse Rate [Pulse Oximeter] Pulse Rate [Right Pulse Oximeter] Respiratory Rate 14 16 18 Blood Pressure 146/84 H 143/81 H 144/87 H Blood Pressure [Ri ght Arm] Blood Pressure [Ri ght Upper Arm] Pulse Oximetry 96 97 96 Oxygen Delivery Nd thod Room Air Room Air 02/18/24 20:40 02/18/24 20:46 02/18/24 20:54 Temperature 98.3 F 99.2 F Pulse Rate 80 82 Pulse Rate [Pulse Oximeter] Pulse Rate [Right Pulse Oximeter] Respiratory Rate 14 14 16 Blood Pressure 140/77 H 133/82 Blood Pressure [Ri ght Arm] 145/85 H Blood Pressure [Ri ght Upper Arm] Pulse Oximetry 97 95 96 Oxygen Delivery Nd thod Room Air Room Air Room Air 02/18/24 20:55 02/18/24 21:10 02/18/24 21:20 Temperature 99.2 F 99.2 F 99.8 F H Pulse Rate 67 78 73 Pulse Rate [Pulse Oximeter] Pulse Rate [Right Pulse Oximeter] Respiratory Rate 16 16 16 Blood Pressure 145/85 H 142/89 H 142/91 H Blood Pressure [Ri ght Arm] Blood Pressure [Ri ght Upper Arm] Pulse Oximetry 96 96 95 Oxygen Delivery Me thod Room Air Room Air Room Air 02/18/24 21:43 02/18/24 21:45 02/18/24 22:00 Temperature 99.9 F H 99.8 F H 99.8 F H Pulse Rate 71 71 77 Pulse Rate [Pulse Oximeter] Pulse Rate [Right Pulse Oximeter] Respiratory Rate 16 16 16 Blood Pressure 146/87 H 143/83 H 143/78 H Blood Pressure [Ri ght Arm] Blood Pressure [Ri ght Upper Arm] Pulse Oximetry 96 95 98 Oxygen Delivery Me thod Room Air Room Air Room Air 02/18/24 22:30 02/18/24 23:00 02/18/24 23:00 Temperature 100.6 F H 99.9 F H Pulse Rate 77 76 Pulse Rate [Pulse Oximeter] Pulse Rate [Right Pulse Oximeter] Respiratory Rate 16 16 16 Blood Pressure 140/77 H 136/77 Blood Pressure [Ri ght Arm] Blood Pressure [Ri ght Upper Arm] Pulse Oximetry 98 96 Oxygen Delivery Me thod Room Air Room Air 02/19/24 00:00 02/19/24 00:23 02/19/24 00:25 Temperature 101.1 F H 101.1 F H 101.1 F H Pulse Rate 80 Pulse Rate [Pulse Oximeter] 80 Pulse Rate [Right Pulse Oximeter] Respiratory Rate 16 16 Blood Pressure 128/82 Blood Pressure [Ri ght Arm] 128/82 Blood Pressure [Ri ght Upper Arm] Pulse Oximetry 94 94 Oxygen Delivery Me thod Room Air Room Air 02/19/24 01:00 02/19/24 02:44 02/19/24 04:00 Temperature 99 F 99.5 F 98.4 F Pulse Rate 68 66 Pulse Rate [Pulse Oximeter] 66 Pulse Rate [Right Pulse Oximeter] Respiratory Rate 16 16 16 Blood Pressure 119/86 109/65 Blood Pressure [Ri ght Arm] 109/65 Blood Pressure [Ri ght Upper Arm] Pulse Oximetry 94 93 93 Oxygen Delivery Me thod Room Air Room Air Room Air 02/19/24 07:00 02/19/24 07:00 02/19/24 07:00 Temperature 98.2 F Pulse Rate Pulse Rate [Pulse Oximeter] 67 67 67 Pulse Rate [Right Pulse Oximeter] Respiratory Rate 16 16 16 Blood Pressure Blood Pressure [Ri ght Arm] 130/78 Blood Pressure [Ri ght Upper Arm] Pulse Oximetry 98 Oxygen Delivery Me thod Room Air DS: Data Data Completed and Pending Labs on day of discharge: Labs from last 24 hours 02/19/24 02/18/24 05:38 12:15 WBC 11.54 H 17.17 H RBC 4.33 5.32 Hgb 13.4 L 16.1 Hct 40.3 48.3 MCV 93 91 MCH 31 30 MCHC 33 33 RDW Coeff of Cara 12.9 12.5 Plt Count 253 296 Neut % (Auto) 86.3 H 92.0 H Lymph % (Auto) 5.6 L 2.3 L Mcleod % (Auto) 7.7 5.3 Eos % (Auto) 0.1 0.1 Baso % (Auto) 0.1 0.1 Neut # (Auto) 10.00 H 15.80 H Lymph # (Auto) 0.60 L 0.40 L Mcleod # (Auto) 0.90 0.90 Eos # (Auto) 0.00 0.00 Baso # (Auto) 0.00 0.00 Abs Immat Gran (auto) 0.00 0.00 Imm/Tot Granulo (auto) 0.2 0.2 Sodium 136 Potassium 4.4 Chloride 104 Carbon Dioxide 25 Anion Gap 7 BUN 20 Creatinine 0.8 Estimated Creat Clear 79.48 Estimated GFR 99 Glucose 115 Lactate 1.3 Calcium 9.8 Total Bilirubin 0.9 AST 29 ALT 31 Alkaline Phosphatase 87 C-Reactive Protein 3.5 H Total Protein 8.4 H Albumin 4.8 Discharge Plan Discharge Disposition: Home w/ Parent or Adult Discharging Surgeon: Gerri Begum Follow-Up Appointment: 2 weeks Prescriptions: New hydrocodone-acetaminophen 5-325 mg Tablet 1 - 2 tab PO Q8H PRN (Reason: Pain) Qty: 15 0RF amoxicillin-pot clavulanate 875-125 mg tablet 1 tab PO BID Qty: 14 0RF Continued losartan 25 mg tablet 25 mg PO DAILY atorvastatin 10 mg tablet 10 mg PO DAILY Activity Level: No strenuous activity Activity Detail: No lifting more than 20 pounds for 2 weeks Discharge Diet: Regular Patient Instructions: Hydrocodone/Acetaminophen (By mouth), Amoxicillin/Clavulanate Potassium (By mouth), General Anesthesia (DC), Laparoscopic Appendectomy (DC) Additional Instructions: Wound care: Your sutures are under the skin and will dissolve over time. Leave steri strips (white bandages) over incisions until they fall off (or remove after 7 days). OK to shower tomorrow but avoid bathing, soaking or swimming for 2 weeks. Pat the incisions dry. No need to wash or scrub the area. Apply ice to the area as needed for swelling. It is also OK to use a heating pad if this provides more comfort to you. Pain control: You were prescribed a pain medication. This medication contains acetaminophen (Tylenol). If you are taking your prescribed pain pills 4 times daily, do not take additional acetaminophen. As your pain improves, you can try taking acetaminophen instead of the prescribed pain pill. It is ok to take Ibuprofen or Naproxen (per directions on packaging). This medication helps with inflammation and swelling. Take an [id number] stool softener while you are taking prescribed pain medications to help alleviate constipation. I recommend Senna and/or Colace. Take as directed on package. If you have not had a bowel movement in 3 days, try taking Miralax as directed on the package. All of these are available over the counter. Follow-up Follow up with Dr. Begum in 2-3 weeks Please call if you are experiencing severe pain, nausea, vomiting, difficulty urinating, fever or have not had bowel movement in 4 days after surgery. Forms: Work/School Release Follow-up: Gerri Begum MD [Staff Physician] - 02/25/24 11:15 am (Follow up at [facility]) Provider,Not a Local [Primary Care Provider] - Discharge Orders: Discharge Order (Routine); Ordered 02/19/24 Ordered By: Gerri Begum
--- NOTE | 2024-02-19 14:00 | PC.NURSE ---
Discharge: Patient pleasant and cooperative, A&O. VSS, lung sounds clear to auscultation. Dressings dry and intact. Denies pain. Passing flatus. Discharge instructions given to patient. Discharging to home. IV removed, catheter intact.
== END 2024-02-19 12:27 | disposition home or self-care (01) ==
LOC: ED 14:08 → SS 14:26 → MEDSURG 14:29
PROVIDERS: Emergency Provider Family Medicine; Visit Provider Surgery
PROC: 0DTJ4ZZ Resection of Appendix, Percutaneous Endoscopic Approach (ICD-10-PCS; CPT 44970; principal; 2024-02-18 17:30)
DX: K35.891 Other acute appendicitis without perforation, with gangrene (principal); R10.31 Right lower quadrant pain; I12.9 Hypertensive chronic kidney disease with stage 1 through stage 4 chronic kidney disease, or unspecified chronic kidney disease; N18.2 Chronic kidney disease, stage 2 (mild); K57.10 Diverticulosis of small intestine without perforation or abscess without bleeding
CPT/HCPCS: 44970; 49592; 44238; 00840; 36415; 74177; 80053; 83605; 85025; 86140; 88304; 94761; 99284; 99285; A9270; J0330; J0665; J1100; J1170; J1885; J2250; J2405; J2543; J2704; J3010; J3490; J7030; J7050; J7120; Q9967